=== PATIENT | female | born 1985 | race Caucasian/White ===

== ENCOUNTER 2016-10-04 11:26 | Inpatient (IN) | payer OTHER ==
[~2016-10-04] VITALS: Ht 172.7 cm; Wt 135.9 kg
[~2016-10-04 11:26] MED LIST: CPR500 PO
[2016-10-04] MEDS ORDERED: ONDANSETRON INJ 2 MG/ML 2 ML VIAL IV STA ×2 (11:48→12:55)
[2016-10-04] MEDS ORDERED: SODIUM CHLORIDE 0.9% 1000ML 1,000 ML IV STA (11:48)
[2016-10-04] MEDS ORDERED: MoRPHine SULFATE 10 MG/ML CARP/VIAL IV PRN (12:00)
[2016-10-04 12:16] LABS: BASO % 0.2 %; BASO ABS # 0.02 K/uL (0-0.2); COMPLETE YES; EOS % 0.6 %; HEMATOCRIT 38.5 % (37-47); IG% 0.3 %; LYMPH ABS # 1.73 K/uL (1.2-3.4); MEAN CELL VOLUME 92.5 fL (80-100); MEAN CORPUSCULAR HEMOGLOBIN 31.3 pg (25-34); MEAN CORPUSCULAR HGB CONC 33.8 g/dl (32-36); MEAN PLATELET VOLUME 11.3 fL (7.4-10.4); MONO % 7.8 %; NEUT % 76.1 %; PLATELET COUNT 186 K/uL (130-400); RED BLOOD COUNT 4.16 M/uL (4.2-5.4); WHITE BLOOD COUNT 11.52 K/uL (4.8-10.8)
[2016-10-04] MEDS ORDERED: OPTIRAY 320 IV PRN (12:30)
[2016-10-04 12:32] LABS: CALCIUM 8.9 mg/dl (8.5-10.1); CREATININE 1.6 mg/dl (0.60-1.20)
--- NOTE | 2016-10-04 13:43 | DIAGNOSTIC IMAGING REPORT ---
CT SCAN OF THE ABDOMEN AND PELVIS WITHOUT IV CONTRAST CLINICAL HISTORY: Right lower quadrant abdominal pain. COMPARISON STUDY: Abdominal CT dated 12/20/2009. TECHNIQUE: CT scan of the abdomen and pelvis is performed from the lung bases to the proximal femora. Images are reviewed in the axial, sagittal, and coronal planes. IV contrast was not administered for this examination as per the referring clinician. Oral contrast was utilized. The examination is degraded by large body habitus, and by streak artifact from the body wall abutting the CT gantry. Automated dose control exposure was utilized. A dose lowering technique was utilized adhering to the principles of ALARA. CT DOSE: 1694.36 mGy.cm FINDINGS: Lung bases: The heart is normal in size and without pericardial effusion. The lung bases are clear. Liver: The unenhanced liver is top normal in size and demonstrates diminished attenuation consistent with mild hepatic steatosis. Fatty sparing is seen adjacent to gallbladder fossa. There is no intrahepatic biliary ductal dilatation. Gallbladder: Unremarkable. Spleen: Normal in size and attenuation. Pancreas: Unremarkable. Adrenal glands: Unremarkable. Kidneys: The unenhanced kidneys are normal in size. There is a 7 mm obstructing calculus in the right proximal ureter seen on axial image #245 at the level of L3-L4. This causes mild right-sided hydroureteronephrosis. There is mild associated right-sided perinephric stranding. No additional calculi are identified in the right kidney. There are 2 nonobstructing left renal calculi which measure up to 4 mm. No left-sided hydronephrosis is seen. There is no evidence of contour deforming renal mass lesion. Abdominal vasculature: The abdominal aorta is normal in course and caliber. Bowel: The small bowel and colon are normal in course and caliber. The appendix is well-visualized and normal. Peritoneum: There is no intraperitoneal free air or abdominal ascites. There is a small fat-containing umbilical hernia. Lymphadenopathy: None. Pelvic viscera: The bladder is decompressed and grossly unremarkable. The uterus and adnexa are normal as visualized. Small ovarian follicles are observed. Skeletal structures: No lytic or blastic lesions are seen. IMPRESSION: There is a 7 mm obstructing calculus in the right proximal ureter. This causes mild right hydroureteronephrosis. 2. No additional right renal calculi are identified. Small nonobstructing stones are seen in the left kidney. 3. Mild hepatic steatosis. 4. Additional findings as above. Electronically signed by: Andi Ortega M.D. 10/04/2016 1:42 PM Dictated Date/Time: 10/04/2016 1:34 PM
[2016-10-04 14:39] LABS: URINE APPEARANCE CLOUDY (CLEAR); URINE BILIRUBIN NEG (NEG); URINE COLOR YELLOW; URINE EPITHELIAL CELL AUTO >30 /lpf (0-5); URINE NITRITE NEG (NEG); URINE SPECIFIC GRAVITY 1.021 (1.000-1.030); UROBILINOGEN NEG (NEG)
[2016-10-04 14:43] LABS: MANUAL MICROSCOPIC REQUIRED? NO; REVIEW REQ? NO
[2016-10-04] MEDS ORDERED: KETOROLAC TROMETHAMINE 30 MG/ML VIAL IV STA (15:07)
[2016-10-04] MEDS ORDERED: METOCLOPRAMIDE HCL INJ 5 MG/ML 2 ML VIAL IV STA (15:07)
[2016-10-04] MEDS ORDERED: ONDANSETRON INJ 2 MG/ML 2 ML VIAL IV PRN (15:15)
--- NOTE | 2016-10-04 15:18 | Progress Note ---
Internal Med Progress Note Date of Service: Oct 04, 2016. Vital Signs: Date Time Temp Pulse Resp B/P (MAP) Pulse Ox O2 Delivery O2 Flow Rate FiO2 10/04/16 15:29 63 20 124/84 98 Room Air 10/04/16 13:59 52 10/04/16 13:45 49 16 123/73 96 Room Air 10/04/16 11:28 36.4 65 20 120/89 97 Lab Results: Results Past 24 Hours Test 10/04/16 12:05 10/04/16 13:12 Range/Units White Blood Count 11.52 4.8-10.8 K/uL Red Blood Count 4.16 4.2-5.4 M/uL Hemoglobin 13.0 12.0-16.0 g/dL Hematocrit 38.5 37-47 % Mean Corpuscular Volume 92.5 80-100 fL Mean Corpuscular Hemoglobin 31.3 25-34 pg Mean Corpuscular Hemoglobin Concent 33.8 32-36 g/dl Platelet Count 186 130-400 K/uL Mean Platelet Volume 11.3 7.4-10.4 fL Neutrophils (%) (Auto) 76.1 % Lymphocytes (%) (Auto) 15.0 % Monocytes (%) (Auto) 7.8 % Eosinophils (%) (Auto) 0.6 % Basophils (%) (Auto) 0.2 % Neutrophils # (Auto) 8.76 1.4-6.5 K/uL Lymphocytes # (Auto) 1.73 1.2-3.4 K/uL Monocytes # (Auto) 0.90 0.11-0.59 K/uL Eosinophils # (Auto) 0.07 0-0.5 K/uL Basophils # (Auto) 0.02 0-0.2 K/uL RDW Standard Deviation 43.5 36.4-46.3 fL RDW Coefficient of Variation 12.9 11.5-14.5 % Immature Granulocyte % (Auto) 0.3 % Immature Granulocyte # (Auto) 0.04 0.00-0.02 K/uL Sodium Level 140 136-145 mmol/L Potassium Level 4.0 3.5-5.1 mmol/L Chloride Level 108 98-107 mmol/L Carbon Dioxide Level 26 21-32 mmol/L Anion Gap 6.0 3-11 mmol/L Blood Urea Nitrogen 11 7-18 mg/dl Creatinine 1.60 0.60-1.20 mg/dl Est Creatinine Clear Calc Drug Dose 7.4 ml/min Estimated GFR () 49.9 Estimated GFR (Non- 43.1 BUN/Creatinine Ratio 7.0 10-20 Random Glucose 84 70-99 mg/dl Calcium Level 8.9 8.5-10.1 mg/dl Total Bilirubin 0.4 0.2-1 mg/dl Direct Bilirubin 0.1 0-0.2 mg/dl Aspartate Amino Transf (AST/SGOT) 15 15-37 U/L Alanine Aminotransferase (ALT/SGPT) 23 12-78 U/L Alkaline Phosphatase 72 45-117 U/L Total Protein 7.0 6.4-8.2 gm/dl Albumin 3.6 3.4-5.0 gm/dl Lipase 190 73-393 U/L Urine Color YELLOW Urine Appearance CLOUDY CLEAR Urine pH 6.0 4.5-7.5 Urine Specific [place] 1.021 1.000-1.030 Urine Protein NEG NEG Urine Glucose (UA) NEG NEG Urine Ketones NEG NEG Urine Occult Blood 1+ NEG Urine Nitrite NEG NEG Urine Bilirubin NEG NEG Urine Urobilinogen NEG NEG Urine Leukocyte Esterase TRACE NEG Urine WBC (Auto) 5-10 0-5 /hpf Urine RBC (Auto) 5-10 0-4 /hpf Urine Hyaline Casts (Auto) 1-5 0-5 /lpf Urine Epithelial Cells (Auto) >30 0-5 /lpf Urine Bacteria (Auto) 1+ NEG Urine Test NEG NEG
[2016-10-04] MEDS ORDERED: MoRPHine SULFATE 2 MG/ML CARP IV PRN (15:45)
--- NOTE | 2016-10-04 15:45 | History and Physical ---
History & Physical Date & Time of Service: Oct 04, 2016 at 15:45 Chief Complaint: Stomach Pain, V, Constipation Primary Care Physician: No Doctor, Assigned History of Present Illness Source: patient, family Patient is a 31 yr female with PMH of Nephrolithiasis presents with history of RLQ abdominal pain since yesterday. States pain is about 5/10 intensity, which comes and goes, non radiating, pressure/cramping type of pain. No aggravating/ relieving factors. Denies any fever, chills, hematuria, chest pain, SOB, diarrhea. Reports associated nausea and vomiting. Reports having renal stones previously which is able to pass voluntarily. CT abd showed 7 mm obstructing calculus in the right proximal ureter. Past Medical/Surgical History Nephrolithiasis Family History Mother: HTN Grandfather:Nephrolithiasis Social History Smoking Status: Never Smoker Alcohol Use: socially Marital Status: single Allergies Coded Allergies: BEE STING (Unverified Allergy, Unknown, UNKNOWN, 10/04/16) Home Medications No Active Prescriptions or Reported Meds Review of Systems See HPI for pertinent positives & negatives. A total of 10 systems reviewed and were otherwise negative. Physical Exam Vital Signs Date Time Temp Pulse Resp B/P (MAP) Pulse Ox O2 Delivery O2 Flow Rate FiO2 10/04/16 15:29 63 20 124/84 98 Room Air 10/04/16 13:59 52 10/04/16 13:45 49 16 123/73 96 Room Air 10/04/16 11:28 36.4 65 20 120/89 97 General Appearance: WD/WN, no apparent distress, + obese Head: normocephalic, atraumatic Eyes: normal inspection, PERRL, EOMI ENT: normal ENT inspection, hearing grossly normal Neck: supple, trachea midline Respiratory/Chest: chest non-tender, lungs clear, normal breath sounds, no respiratory distress, no accessory muscle use Cardiovascular: regular rate, rhythm, no edema, no murmur Abdomen/GI: normal bowel sounds, soft, + pertinent finding (RLQ Tender) Back: normal inspection Extremities/Musculoskelatal: normal inspection, no pedal edema Neurologic/Psych: egg setter II-XII nml as tested, no motor/sensory deficits, alert, normal mood/affect, normal reflexes, oriented x 3 Skin: normal color, warm/dry Diagnostics Laboratory Results Results Past 24 Hours Test 10/04/16 12:05 10/04/16 13:12 Range/Units White Blood Count 11.52 4.8-10.8 K/uL Red Blood Count 4.16 4.2-5.4 M/uL Hemoglobin 13.0 12.0-16.0 g/dL Hematocrit 38.5 37-47 % Mean Corpuscular Volume 92.5 80-100 fL Mean Corpuscular Hemoglobin 31.3 25-34 pg Mean Corpuscular Hemoglobin Concent 33.8 32-36 g/dl Platelet Count 186 130-400 K/uL Mean Platelet Volume 11.3 7.4-10.4 fL Neutrophils (%) (Auto) 76.1 % Lymphocytes (%) (Auto) 15.0 % Monocytes (%) (Auto) 7.8 % Eosinophils (%) (Auto) 0.6 % Basophils (%) (Auto) 0.2 % Neutrophils # (Auto) 8.76 1.4-6.5 K/uL Lymphocytes # (Auto) 1.73 1.2-3.4 K/uL Monocytes # (Auto) 0.90 0.11-0.59 K/uL Eosinophils # (Auto) 0.07 0-0.5 K/uL Basophils # (Auto) 0.02 0-0.2 K/uL RDW Standard Deviation 43.5 36.4-46.3 fL RDW Coefficient of Variation 12.9 11.5-14.5 % Immature Granulocyte % (Auto) 0.3 % Immature Granulocyte # (Auto) 0.04 0.00-0.02 K/uL Sodium Level 140 136-145 mmol/L Potassium Level 4.0 3.5-5.1 mmol/L Chloride Level 108 98-107 mmol/L Carbon Dioxide Level 26 21-32 mmol/L Anion Gap 6.0 3-11 mmol/L Blood Urea Nitrogen 11 7-18 mg/dl Creatinine 1.60 0.60-1.20 mg/dl Est Creatinine Clear Calc Drug Dose 7.4 ml/min Estimated GFR () 49.9 Estimated GFR (Non- 43.1 BUN/Creatinine Ratio 7.0 10-20 Random Glucose 84 70-99 mg/dl Calcium Level 8.9 8.5-10.1 mg/dl Total Bilirubin 0.4 0.2-1 mg/dl Direct Bilirubin 0.1 0-0.2 mg/dl Aspartate Amino Transf (AST/SGOT) 15 15-37 U/L Alanine Aminotransferase (ALT/SGPT) 23 12-78 U/L Alkaline Phosphatase 72 45-117 U/L Total Protein 7.0 6.4-8.2 gm/dl Albumin 3.6 3.4-5.0 gm/dl Lipase 190 73-393 U/L Urine Color YELLOW Urine Appearance CLOUDY CLEAR Urine pH 6.0 4.5-7.5 Urine Specific [place] 1.021 1.000-1.030 Urine Protein NEG NEG Urine Glucose (UA) NEG NEG Urine Ketones NEG NEG Urine Occult Blood 1+ NEG Urine Nitrite NEG NEG Urine Bilirubin NEG NEG Urine Urobilinogen NEG NEG Urine Leukocyte Esterase TRACE NEG Urine WBC (Auto) 5-10 0-5 /hpf Urine RBC (Auto) 5-10 0-4 /hpf Urine Hyaline Casts (Auto) 1-5 0-5 /lpf Urine Epithelial Cells (Auto) >30 0-5 /lpf Urine Bacteria (Auto) 1+ NEG Urine Test NEG NEG Diagnostic Radiology CT ABD: There is a 7 mm obstructing calculus in the right proximal ureter. This causes mild right hydroureteronephrosis. 2. No additional right renal calculi are identified. Small nonobstructing stones are seen in the left kidney. 3. Mild hepatic steatosis. Impression Assessment and Plan Obstructive Uropathy and R hydroureteronephrosis Secondary to renal Calculus H/O nephrolithiasis Admit to medical floor IV fluids Pain control Strain Urine Empirically start Ceftriaxone Check Urine Culture Urology consulted NPO for now WILLY: Likely secondary to above IV Fluids Monitor renal function DVT Px: SCDs Ambulate Code Status: Full Code VTE Prophylaxis VTE Risk Assessment Done? Y/N: Yes Risk Level: Low
[2016-10-04] MEDS: SODIUM CHLORIDE 0.9% 1000ML 1,000 ML IV SCH (16:46)
[2016-10-04 16:50] VITALS: O2SAT 98; Ht 172.7 cm; Wt 135.9 kg
[2016-10-04] MEDS ORDERED: CEFTRIAXONE SOD INJ 1 GM in DEXTROSE 5% ADD-VANTAGE 50ML 50 ML IV SCH (17:00)
[2016-10-04] MEDS: ACETAMINOPHEN 325 MG TAB PO PRN (21:40)
--- NOTE | 2016-10-04 22:08 | EMERGENCY ROOM VISIT NOTE ---
ED Visit Note First contact with patient: 11:39 Chief Complaint: I'm having right lower quadrant abdominal pain. History of Present Illness: Ms. Alves is a 31 year-old white female who ambulates into the ED complaining of right lower quadrant abdominal pain. Historically patient reports no significant gastrointestinal diseases or abdominal surgeries. Patient reports a acute onset of right lower quadrant abdominal pain that started approximately 24 hours ago. Since that time the pain has been constant but has waxed and waned in intensity. The pain is currently described as cramping and pressure. The pain is nonradiating. She rates her discomfort between 4/10 and 10/10; currently it is 7/10. She has not identified any aggravating or alleviating factors related to the pain. She reports she took ibuprofen last night without relief of her discomfort. Associated with her pain she reports she has been nauseated and had 3 episode of vomiting and one episode of watery stools in the last 24 hours. Patient denies fevers, chills, sweats, skin eruptions, skin color changes, upper respiratory tract symptoms, shortness of breath, chest pain, constipation , rectal bleeding, black/tarry stools, urinary symptoms, hematuria, vaginal bleeding, vaginal discharge, back/flank pain. Review of Systems: As noted above in history of present illness. All body systems were reviewed and found to be negative as noted above. Past Medical History: Patient denies. Current Medications: Patient denies. Allergies to Medications: Patient denies. Social History: Patient is currently employed; she lives with a roommate and feels safe in her home environment; she denies tobacco use and admits to social alcohol use. Physical Examination: Vital Signs: Date Time Temp Pulse Resp B/P (MAP) Pulse Ox O2 Delivery O2 Flow Rate FiO2 10/04/16 15:29 63 20 124/84 98 Room Air 10/04/16 13:59 52 10/04/16 13:45 49 16 123/73 96 Room Air 10/04/16 11:28 36.4 65 20 120/89 97 GENERAL: 31-year-old female in mild to moderate distress due to pain, nontoxic- appearing, afebrile and hemodynamically stable. NEUROLOGICAL: Awake, alert and oriented to person, place and time. Answering questions appropriately and following commands. Normal gait. Good hand eye coordination. SKIN: Warm, dry and pink. No soft tissue eruptions or trauma noted. HEENT: Atraumatic and normocephalic. PERRLA. Sclera white and conjunctiva pink. Oral cavity moist and pink. Pharynx is nonerythematous or edematous. Speech normal. No lymphadenopathy. Trachea midline. No jugular venous distention. BACK: No tenderness over the bony spine. No CVA tenderness. THORAX: Lungs sounds are clear to auscultation and equal bilaterally with symmetrical chest wall. No wheezing, rales or rhonchi. No crepitus, tenderness , subcutaneous air or deformities noted. HEART: Regular rate and rhythm. No gallops, rubs or murmurs are appreciated. ABDOMEN: Obese and soft with moderate tenderness just superior to McBurney's point in the right lower quadrant and mild epigastric tenderness. Positive bowel sounds in all quadrants. No guarding, rigidity or organomegaly. EXTREMITIES: Moves all extremities well on command and with purpose. All distal neurovascular statuses are intact and equal bilaterally. ED Course: Patient is assessed as noted above. Patient's medication list was reviewed. Laboratory Testing: Test 10/04/16 12:05 10/04/16 13:12 Range/Units White Blood Count 11.52 4.8-10.8 K/uL Red Blood Count 4.16 4.2-5.4 M/uL Hemoglobin 13.0 12.0-16.0 g/dL Hematocrit 38.5 37-47 % Mean Corpuscular Volume 92.5 80-100 fL Mean Corpuscular Hemoglobin 31.3 25-34 pg Mean Corpuscular Hemoglobin Concent 33.8 32-36 g/dl Platelet Count 186 130-400 K/uL Mean Platelet Volume 11.3 7.4-10.4 fL Neutrophils (%) (Auto) 76.1 % Lymphocytes (%) (Auto) 15.0 % Monocytes (%) (Auto) 7.8 % Eosinophils (%) (Auto) 0.6 % Basophils (%) (Auto) 0.2 % Neutrophils # (Auto) 8.76 1.4-6.5 K/uL Lymphocytes # (Auto) 1.73 1.2-3.4 K/uL Monocytes # (Auto) 0.90 0.11-0.59 K/uL Eosinophils # (Auto) 0.07 0-0.5 K/uL Basophils # (Auto) 0.02 0-0.2 K/uL RDW Standard Deviation 43.5 36.4-46.3 fL RDW Coefficient of Variation 12.9 11.5-14.5 % Immature Granulocyte % (Auto) 0.3 % Immature Granulocyte # (Auto) 0.04 0.00-0.02 K/uL Sodium Level 140 136-145 mmol/L Potassium Level 4.0 3.5-5.1 mmol/L Chloride Level 108 98-107 mmol/L Carbon Dioxide Level 26 21-32 mmol/L Anion Gap 6.0 3-11 mmol/L Blood Urea Nitrogen 11 7-18 mg/dl Creatinine 1.60 0.60-1.20 mg/dl Est Creatinine Clear Calc Drug Dose 7.4 ml/min Estimated GFR () 49.9 Estimated GFR (Non- 43.1 BUN/Creatinine Ratio 7.0 10-20 Random Glucose 84 70-99 mg/dl Calcium Level 8.9 8.5-10.1 mg/dl Total Bilirubin 0.4 0.2-1 mg/dl Direct Bilirubin 0.1 0-0.2 mg/dl Aspartate Amino Transf (AST/SGOT) 15 15-37 U/L Alanine Aminotransferase (ALT/SGPT) 23 12-78 U/L Alkaline Phosphatase 72 45-117 U/L Total Protein 7.0 6.4-8.2 gm/dl Albumin 3.6 3.4-5.0 gm/dl Lipase 190 73-393 U/L Urine Color YELLOW Urine Appearance CLOUDY CLEAR Urine pH 6.0 4.5-7.5 Urine Specific [place] 1.021 1.000-1.030 Urine Protein NEG NEG Urine Glucose (UA) NEG NEG Urine Ketones NEG NEG Urine Occult Blood 1+ NEG Urine Nitrite NEG NEG Urine Bilirubin NEG NEG Urine Urobilinogen NEG NEG Urine Leukocyte Esterase TRACE NEG Urine WBC (Auto) 5-10 0-5 /hpf Urine RBC (Auto) 5-10 0-4 /hpf Urine Hyaline Casts (Auto) 1-5 0-5 /lpf Urine Epithelial Cells (Auto) >30 0-5 /lpf Urine Bacteria (Auto) 1+ NEG Urine Test NEG NEG Initially a oral and IV contrast CT was initiated but due to her elevated creatinine and her uncontrolled vomiting but was changed to a noncontrast CT. Noncontrast abdominal/pelvic CT: Was reviewed by saprkleelf and read by the radiologist showing a 7 mm obstructing your calculus in the right proximal ureter causing mild right sided hydroureteronephrosis and perinephric stranding. Additional non-obstructing calculus were noted. Appendix is well- visualized and is normal. Small fat-containing umbilical hernia. No abdominal free air or site he's pelvic visceral is unremarkable. Mild hepatic Steatosis. Patient was hydrated with normal saline and she received 6 mg of morphine IV for pain and 4 mg of Zofran IV for nausea. On reassessment she still reported that she was having moderate pain and did not want any additional narcotics but was also still nauseated and she received an additional 4 mg of Zofran. Patient's case was reviewed with ; we agreed on diagnostic approach , treatment, disposition and plan. Patient's case was reviewed with Dr. Obrien, urology; he recommended Toradol for pain. Patient was given 30 mg of Toradol IV for pain and 10 mg of Reglan IV for nausea /vomiting. Patient's case was consulted with case management and Dr. Rasheed, [facility], for medical observation/admission per Patient was educated about today's findings. Clinical Impression: Right proximal ureter calculus. Irretractable nausea/ vomiting. Irretractable pain. Decision-Making: Initially my differential diagnosis I considered acute appendicitis, bowel obstruction, kidney stone, pyelonephritis, pancreatitis, hepatitis, ectopic , ovarian torsion and other causes. Disposition and Plan: Patient be brought in the hospital by the [facility]; please see their notes and orders for final disposition and plan.
[2016-10-05] VITALS: BP 106/71; PULSE 57; TEMP 36.5; O2SAT 98
[2016-10-05] MEDS: SODIUM CHLORIDE 0.9% 1000ML 1,000 ML IV SCH ×3 (03:28→11:46)
[2016-10-05] MEDS: ACETAMINOPHEN 325 MG TAB PO PRN (06:25)
[2016-10-05 07:31] VITALS: BP 130/87; PULSE 58; TEMP 36.6; O2SAT 96
[2016-10-05 07:48] LABS: BASO % 0.2 %; BASO ABS # 0.02 K/uL (0-0.2); COMPLETE YES; EOS % 0.6 %; HEMATOCRIT 34.9 % (37-47); IG% 0.3 %; LYMPH % 15.4 %; LYMPH ABS # 1.68 K/uL (1.2-3.4); MEAN CELL VOLUME 93.3 fL (80-100); MEAN CORPUSCULAR HEMOGLOBIN 30.7 pg (25-34); MEAN PLATELET VOLUME 11.7 fL (7.4-10.4); MONO % 6.8 %; NEUT % 76.7 %; PLATELET COUNT 165 K/uL (130-400); RED BLOOD COUNT 3.74 M/uL (4.2-5.4); WHITE BLOOD COUNT 10.89 K/uL (4.8-10.8)
[2016-10-05 08:17] LABS: BUN/CREATININE RATIO 6.7 (10-20); CALCIUM 8.2 mg/dl (8.5-10.1); CREATININE 1.4 mg/dl (0.60-1.20); POTASSIUM 3.8 mmol/L (3.5-5.1)
[2016-10-05] MEDS ORDERED: TRAMADOL HCL 50 MG TAB PO PRN (08:45)
--- NOTE | 2016-10-05 09:52 | Urology Consultation ---
History General Date of Service: Oct 05, 2016. Chief Complaint: nephrolithiasis Primary Care Physician: No Doctor, Assigned Pt seen a urologist before?: No History of Present Illness 31 yo female presents to [facility] with c/o right flank pain x [address] scan showing a 7mm proximal right ureteral stone. She has a hx of passing 2 stones on her own ~7 years ago. She has never seen a urologist for this issue. She c/o right flank pain 7/10 this morning. Denies n/v, dysuria, or hematuria. Noted to be afebrile. White count of 10.89. Cr of 1.4 this morning. UC&S is pending. Imaging Imaging: CT Laboratory Last 24 Hours Test 10/04/16 12:05 10/04/16 13:12 10/05/16 06:56 White Blood Count 11.52 K/uL 10.89 K/uL Red Blood Count 4.16 M/uL 3.74 M/uL Hemoglobin 13.0 g/dL 11.5 g/dL Hematocrit 38.5 % 34.9 % Mean Corpuscular Volume 92.5 fL 93.3 fL Mean Corpuscular Hemoglobin 31.3 pg 30.7 pg Mean Corpuscular Hemoglobin Concent 33.8 g/dl 33.0 g/dl Platelet Count 186 K/uL 165 K/uL Mean Platelet Volume 11.3 fL 11.7 fL Neutrophils (%) (Auto) 76.1 % 76.7 % Lymphocytes (%) (Auto) 15.0 % 15.4 % Monocytes (%) (Auto) 7.8 % 6.8 % Eosinophils (%) (Auto) 0.6 % 0.6 % Basophils (%) (Auto) 0.2 % 0.2 % Neutrophils # (Auto) 8.76 K/uL 8.36 K/uL Lymphocytes # (Auto) 1.73 K/uL 1.68 K/uL Monocytes # (Auto) 0.90 K/uL 0.74 K/uL Eosinophils # (Auto) 0.07 K/uL 0.06 K/uL Basophils # (Auto) 0.02 K/uL 0.02 K/uL RDW Standard Deviation 43.5 fL 44.4 fL RDW Coefficient of Variation 12.9 % 13.0 % Immature Granulocyte % (Auto) 0.3 % 0.3 % Immature Granulocyte # (Auto) 0.04 K/uL 0.03 K/uL Sodium Level 140 mmol/L 139 mmol/L Potassium Level 4.0 mmol/L 3.8 mmol/L Chloride Level 108 mmol/L 107 mmol/L Carbon Dioxide Level 26 mmol/L 27 mmol/L Anion Gap 6.0 mmol/L 5.0 mmol/L Blood Urea Nitrogen 11 mg/dl 9 mg/dl Creatinine 1.60 mg/dl 1.40 mg/dl Est Creatinine Clear Calc Drug Dose 7.4 ml/min 86.8 ml/min Estimated GFR () 49.9 58.7 Estimated GFR (Non- 43.1 50.6 BUN/Creatinine Ratio 7.0 6.7 Random Glucose 84 mg/dl 81 mg/dl Calcium Level 8.9 mg/dl 8.2 mg/dl Total Bilirubin 0.4 mg/dl Direct Bilirubin 0.1 mg/dl Aspartate Amino Transf (AST/SGOT) 15 U/L Alanine Aminotransferase (ALT/SGPT) 23 U/L Alkaline Phosphatase 72 U/L Total Protein 7.0 gm/dl Albumin 3.6 gm/dl Lipase 190 U/L Urine Color YELLOW Urine Appearance CLOUDY Urine pH 6.0 Urine Specific [place] 1.021 Urine Protein NEG Urine Glucose (UA) NEG Urine Ketones NEG Urine Occult Blood 1+ Urine Nitrite NEG Urine Bilirubin NEG Urine Urobilinogen NEG Urine Leukocyte Esterase TRACE Urine WBC (Auto) 5-10 /hpf Urine RBC (Auto) 5-10 /hpf Urine Hyaline Casts (Auto) 1-5 /lpf Urine Epithelial Cells (Auto) >30 /lpf Urine Bacteria (Auto) 1+ Urine Test NEG Past History kidney stones Past Surgical History: other (wisdom tooth extraction ) Family History mother- HTN grandfather-nephrolithiasis Social History Hx Tobacco Use In Past Year?: No Smoking: non-smoker Alcohol: socially Marital status: single Allergies Coded Allergies: BEE STING (Unverified Allergy, Unknown, UNKNOWN, 10/04/16) Medications Home Medications: Home Meds and Scripts Medications Dose Route/Sig Max Daily Dose Days Date Category No Active Prescriptions or Reported Medications Rx Inpatient Medications: Current Inpatient Medications Medications (Trade) Dose Ordered Sig/Cruzito Route Start Time Stop Time Status Last Admin Dose Admin Acetaminophen (Tylenol Tab) 650 mg Q4H PRN PO 10/04/16 15:15 11/03/16 15:14 10/05/16 06:25 650 MG Ondansetron HCl (Zofran Inj) 4 mg Q6H PRN IV 10/04/16 15:15 11/03/16 15:14 Ceftriaxone Sodium 1 gm/ Dextrose 50 ml @ 100 mls/hr Q24H IV 10/04/16 17:00 10/06/16 16:59 10/04/16 17:19 100 MLS/HR Morphine Sulfate (MoRPHine SULFATE INJ) 1 mg Q4H PRN IV 10/04/16 15:45 10/18/16 15:44 Sodium Chloride 1,000 ml @ 150 mls/hr Q6H40M IV 10/04/16 16:30 11/03/16 16:29 10/05/16 06:29 150 MLS/HR Tramadol HCl (Ultram Tab) 50 mg Q4H PRN PO 10/05/16 08:45 11/04/16 08:44 UNV Review of Systems Review of Systems Constitutional: No fever, No chills Eyes: No double vision Neurological: No dizzy Endocrine: No excessive thirst Gastrointestinal: + abdominal pain (right flank 7/10), No nausea, No vomiting Cardiovascular: No chest pain Respiratory: No shortness of breath Skin: No rash Musculoskeletal: No back pain Female : No painful urination, No blood in urine Physical Exam Vital Signs: Vital Signs Past 12 Hours Date Time Temp Pulse Resp B/P (MAP) Pulse Ox O2 Delivery O2 Flow Rate FiO2 10/05/16 08:00 Room Air 10/05/16 07:31 36.6 58 18 130/87 (101) 96 10/05/16 00:00 Room Air 10/05/16 00:00 36.5 57 20 106/71 (83) 98 Room Air Physical Exam: General Appearance: no apparent distress, + obese Eyes: bilateral eyes normal inspection ENT: hearing grossly normal Neck: no JVD Respiratory/Chest: no respiratory distress, no accessory muscle use Cardiovascular: no JVD Extremities: normal inspection Neurologic/Psychiatric: alert, normal mood/affect, oriented x 3 Skin: normal color Assessment & Plan Assessment & Plan Treatment Planned: cystoscopy w/ stent A/P: 7mm proximal right ureteral stone AFVSS. Tx options discussed with the pt today have included a trial of passage with MET vs cysto with right ureteral stent placement. She prefers stent placement today with Dr. Messer. Risks and benefits of the procedure discussed with the pt. All questions answered. Pt agrees to the procedure at this time. Consent obtained. Will check a pre-op EKG, chest x-ray, and KUB. Will tentatively plan for right ESWL this Wednesday for definitive stone management. Avoids all NSAIDS or other anticoagulation until after ESWL. Hopeful for d/c home tomorrow. Thanks for the consult. Will continue to follow along with primary service.
--- NOTE | 2016-10-05 10:45 | DIAGNOSTIC IMAGING REPORT ---
CHEST 2 VIEWS ROUTINE CLINICAL HISTORY: Preoperative evaluation. COMPARISON STUDY: No previous studies for comparison. FINDINGS: Lung volumes are at the lower limits of normal. There is no consolidation. Pulmonary vascularity is normal. No pneumothorax or pleural effusion is present. Borderline cardiomegaly is noted. IMPRESSION: 1. No acute cardiopulmonary findings. 2. Borderline cardiomegaly. Electronically signed by: Irwin Khan M.D. 10/05/2016 10:44 AM Dictated Date/Time: 10/05/2016 10:43 AM
--- NOTE | 2016-10-05 10:51 | DIAGNOSTIC IMAGING REPORT ---
KUB CLINICAL HISTORY: 31 years-old Female presenting with RIGHT URETERAL STONE. TECHNIQUE: Single supine view of the abdomen was obtained. COMPARISON: CT from 10/04/2016. FINDINGS: The presence of oral contrast in the colon and bowel gas degrade evaluation of the kidneys. Within this limitation, the previously noted punctate calculi in the left kidney are not radiographically apparent. The obstructing proximal right renal calculus at the L3-4 level may project over the right sacrum, although this is indeterminate. No other candidate calculus noted in the more distal right ureter or over the region of the bladder. Osseous structures intact. Nonobstructive bowel gas pattern. IMPRESSION: 1. Possible migration of the right ureteral calculus, which may project over the right sacrum. However, this is indeterminate. Continued follow-up recommended. 2. Punctate left renal calculi not radiographically apparent. Electronically signed by: Jadiel Reyes M.D. 10/05/2016 10:50 AM Dictated Date/Time: 10/05/2016 10:47 AM
[2016-10-05] MEDS ORDERED: CIPROFLOXACIN 400MG / 200ML D5W IV SCH (12:00)
[2016-10-05] MEDS ORDERED: ATROPINE SULFATE 0.1 MG/ML 5ML SYR IV PRN (12:15)
[2016-10-05] MEDS ORDERED: ONDANSETRON INJ 2 MG/ML 2 ML VIAL IV PRN (12:15)
[2016-10-05] MEDS ORDERED: HYDROmorphone INJ 1 MG/ML SYR IV PRN (12:15)
[2016-10-05] MEDS ORDERED: FENTANYL CITRATE INJ 50 MCG/1 ML 2 ML VIAL IV PRN (12:15)
[2016-10-05] MEDS ORDERED: EpHEDrine SULFATE INJ 50 MG/ML AMP IV PRN (12:15)
[2016-10-05] MEDS ORDERED: MIDAZOLAM HCL 1 MG/ML 2ML VIAL ONE (12:41)
[2016-10-05] MEDS ORDERED: FENTANYL CITRATE INJ 50 MCG/1 ML 2 ML VIAL ONE (12:41)
[2016-10-05] MEDS ORDERED: CONRAY 30% 150ML BOTTLE ONE (12:41)
[2016-10-05] MEDS ORDERED: LIDOCAINE HCL 2% 2 ML VIAL (20MG/ML) ONE (12:41)
[2016-10-05] MEDS ORDERED: PROPOFOL IV EMULSION 10 MG/ML 20 ML VIAL IV ONE (12:41)
[2016-10-05] MEDS ORDERED: PHEN-775 PO (12:51)
[2016-10-05] MEDS ORDERED: CIPR-255 PO (12:51)
[2016-10-05] MEDS ORDERED: OXYC7.5T65 PO (12:51)
--- NOTE | 2016-10-05 12:54 | Discharge Instructions ---
Discharge Instructions Date of Service Oct 05, 2016. Admission Reason for Admission: Renal Colic Discharge Discharge Diagnosis / Problem: R upper ureteral stone s/p stent Discharge Goals Goal(s): Decrease discomfort, Improve function, Therapeutic intervention Activity Recommendations Activity Limitations: as noted below Lifting Limitations: no more than 25 pounds, gradually increase as tolerated Exercise/Sports Limitations: rest today, gradually increase as tolerated May Resume Sexual Activity: when tolerated Shower/Bathe: no limitations Driving or Machine Use: resume 1 day after discharge . Instructions / Follow-Up Instructions / Follow-Up Call office at [phone] to confirm appointment and schedule shockwave lithotripsy as planned or with any other urologic questions. Current Hospital Diet Hospital Diet(s): Clear Liquid Diet Discharge Diet Recommended Diet: Regular Diet (good fluid intake) Procedures Procedures Performed: Cystoscopy, right retrograde pyelography and right ureteral stent Pending Studies Studies pending at discharge: no Medical Emergencies . Who to Call and When: Medical Emergencies: If at any time you feel your situation is an emergency, please call 911 immediately. . Non-Emergent Contact Non-Emergency issues call your: Urologist Call Non-Emergent contact if: you have a fever, temperature is above 101, your pain is not controlled, your pain is worsening, your pain is unusual for you, your pain is concerning you, you have any medication questions . . "Provider Documentation" section prepared by Blas Messer. . VTE Core Measure Inpt VTE Proph given/why not?: SCD's [place] Drug Monitoring Program Search Results: patient reviewed within database, no issues identified
--- NOTE | 2016-10-05 13:20 | [facility] Post Operative Brief Note ---
Immediate Operative Summary Operative Date Oct 05, 2016. Pre-Operative Diagnosis Right ureteral stone with intractable colic Post-Operative Diagnosis Same Procedure(s) Performed Cystoscopy, right retrograde pyelography and right ureteral stent Surgeon Gui Malone Assistant Professor Of Forestry Surgeon(s) NA Estimated Blood Loss NA Findings Good stent position on fluoro Specimens NA Drains 5 fr multilength R ureteral stent Anesthesia MAC Complication(s) None Disposition Recovery Room / PACU
--- NOTE | 2016-10-05 13:23 | [facility] Operative Report ---
Operative Report Operative Date Oct 05, 2016. Pre-Operative Diagnosis Right ureteral stone with intractable colic Post-Operative Diagnosis Same Procedure(s) Performed Cystoscopy, right retrograde pyelography and right ureteral stent Surgeon Gui Malone Ethnic Origins Teacher Surgeon(s) NA Estimated Blood Loss NA Findings Good stent position on fluoro Specimens NA Drains 5 fr multilength R ureteral stent Anesthesia MAC Complication(s) None Disposition Recovery Room / PACU Indications 31 -year-old female admitted for intractable right renal colic due to a 7 mm right proximal ureteral stone. Please see urology consultation for further details. Patient is chosen the ureteral stent ensure season is being brought to the operating room for this purpose. Ciprofloxacin was provided for intravenous antibiotic coverage. Description of Procedure Patient was properly identified and brought into the operative suite after identification of appropriate consent of the chart. Monitored anesthesia care with sedation was initiated and patient was prepped and draped in the standard fashion for this procedure. Full timeout procedure was followed. 22 Azeri rigid cystoscope was passed into the bladder under direct visualization bladder was surveyed in its entirety demonstrating no intravesical lesions, papillary masses or calculi. Right-sided ureteral orifice was cannulated using an open- ended catheter and gentle retrograde pyelography was performed. This demonstrated a normal ureter up to the proximal ureter and then some dilation of the right renal pelvis. This was followed by a sensor wire which was advanced to the right kidney without difficulties. 5 Azeri multilength ureteral stent was advanced with focal present within the renal pelvis and a coil present within the bladder. Hydronephrotic drip was appreciated from the right-hand side with concentrated urine but no purulence. Bladder was drained and cystoscope was removed. Anesthesia was reversed patient's transient recovery room in stable condition. Patient should be stable for discharge home this afternoonand is provided with prescriptions for ciprofloxacin, Pyridium and Percocet. Will likely arrange for lithotripsy in the near future for definitive stone management. She may contact our office for further information. I attest to the content of the Intraoperative Record and any orders documented therein. Any exceptions are noted below.
[2016-10-05] MEDS ORDERED: PHENAZOPYRIDINE HCL 200 MG TAB PO PRN (13:30)
--- NOTE | 2016-10-05 13:31 | DIAGNOSTIC IMAGING REPORT ---
Radiology RETROGRADE INCLUDES KUB CLINICAL HISTORY: 31 years-old Female presenting with RT CYSTO/STENT. TECHNIQUE: 5 fluoroscopic spot image(s) obtained as part of an intraoperative procedure. COMPARISON: 10/05/2016. FINDINGS/IMPRESSION: Initial spot images demonstrate progressive opacification of the right ureter. No gross filling defect is evident. Subsequently, a guidewire was introduced into the upper pole calyx of the right kidney and a right ureteral stent was placed. Please see surgical report for further details. Fluoroscopy dosage (mGy): Not available. Fluoroscopy time: 50 seconds. Number of fluoroscopic spot images: 5. Electronically signed by: Jadiel Reyes M.D. 10/05/2016 1:30 PM Dictated Date/Time: 10/05/2016 1:28 PM
--- NOTE | 2016-10-05 13:45 | Anesthesiology Progress Note ---
Anesthesia Post Op Note Date & Time Oct 05, 2016 at 13:45 Vital Signs Pain Intensity: 0 Vital Signs Past 12 Hours Date Time Temp Pulse Resp B/P (MAP) Pulse Ox O2 Delivery O2 Flow Rate FiO2 10/05/16 13:38 36.9 51 20 122/75 (92) 96 Room Air 10 10/05/16 13:35 134/80 10/05/16 13:33 61 21 98 10/05/16 13:33 60 21 10/05/16 13:30 136/72 10/05/16 13:28 55 24 100 10/05/16 13:28 56 24 10/05/16 13:25 125/75 10/05/16 13:23 47 22 10/05/16 13:23 47 22 100 10/05/16 13:21 121/71 10/05/16 13:18 36.0 58 20 128/74 98 Mask 10 10/05/16 13:18 58 23 128/74 98 10/05/16 13:18 58 23 10/05/16 08:00 Room Air 10/05/16 07:31 36.6 58 18 130/87 (101) 96 Notes Mental Status: alert / awake / arousable, participated in evaluation Pt Amnestic to Procedure: Yes Nausea / Vomiting: adequately controlled Pain: adequately controlled Airway Patency, RR, SpO2: stable & adequate BP & HR: stable & adequate Hydration State: stable & adequate Anesthetic Complications: no major complications apparent
[2016-10-05 14:04] VITALS: BP 125/80; PULSE 53; TEMP 36.5; O2SAT 99
--- NOTE | 2016-10-05 15:13 | Progress Note ---
Internal Med Progress Note Date of Service: Oct 05, 2016. Provider Documentation: SUBJECTIVE: Seen and examined at bedside Had stent placement today Doing well post procedure Denies chest pain, SOB, Abd pain Has some dysuria OBJECTIVE: Vital Signs-as noted below Physical Exam: Vitals signs as noted above General Appearance:Obese, no distress Head: normocephalic, Atraumatic Eyes: normal inspection, EOMI, PERRL Neck: supple, Trachea midline Respiratory/Chest: Normal breath sounds, CTA Cardiovascular: S1, S2, No murmur Abdomen/GI:Soft, Non tender, Bowel sounds present Extremities/Musculoskelatal:normal inspection, no edema Neurologic/Psych:AAOX3, grossly no focal neurological deficits Skin: normal color, warm Lab data as noted below. ASSESSMENT & PLAN: Obstructive Uropathy and R hydroureteronephrosis Secondary to renal Calculus H/O nephrolithiasis S/P Cystoscopy, right retrograde pyelography and right ureteral stent POD #0 DC IV fluids Pain control continue Ceftriaxone Urine Culture pending Appreciate Urology help WILLY: Likely secondary to above IV Fluids Monitor renal function Cr levels better DVT Px: SCDs Ambulate Code Status: Full Cod Disposition: Plan to discharge home today Follow up with Primary Care on 10/07/16 at 12:45pm [facility] Office [address] [place] [address], [place] [address] Follow up with your Urologist as advised Complete the antibiotic course as prescribed Seek immediate medical attention if your symptoms reoccur or worsen Vital Signs: Date Time Temp Pulse Resp B/P (MAP) Pulse Ox O2 Delivery O2 Flow Rate FiO2 10/05/16 14:04 36.5 53 18 125/80 (95) 99 10/05/16 13:51 56 21 93 10/05/16 13:51 54 21 10/05/16 13:50 126/76 10/05/16 13:46 56 16 98 10/05/16 13:46 55 16 10/05/16 13:45 130/78 10/05/16 13:41 52 22 122/75 98 10/05/16 13:41 51 22 10/05/16 13:38 36.9 51 20 122/75 (92) 96 Room Air 10 10/05/16 13:36 61 16 10/05/16 13:36 63 16 99 10/05/16 13:35 134/80 10/05/16 13:33 61 21 98 10/05/16 13:33 60 21 10/05/16 13:30 136/72 10/05/16 13:28 55 24 100 10/05/16 13:28 56 24 10/05/16 13:25 125/75 10/05/16 13:23 47 22 10/05/16 13:23 47 22 100 10/05/16 13:21 121/71 10/05/16 13:18 36.0 58 20 128/74 98 Mask 10 10/05/16 13:18 58 23 128/74 98 10/05/16 13:18 58 23 10/05/16 08:00 Room Air 10/05/16 07:31 36.6 58 18 130/87 (101) 96 10/05/16 00:00 Room Air 10/05/16 00:00 36.5 57 20 106/71 (83) 98 Room Air 10/04/16 20:00 Room Air 10/04/16 16:50 98 Room Air 10/04/16 15:29 63 20 124/84 98 Room Air Lab Results: Results Past 24 Hours Test 10/05/16 06:56 Range/Units White Blood Count 10.89 4.8-10.8 K/uL Red Blood Count 3.74 4.2-5.4 M/uL Hemoglobin 11.5 12.0-16.0 g/dL Hematocrit 34.9 37-47 % Mean Corpuscular Volume 93.3 80-100 fL Mean Corpuscular Hemoglobin 30.7 25-34 pg Mean Corpuscular Hemoglobin Concent 33.0 32-36 g/dl Platelet Count 165 130-400 K/uL Mean Platelet Volume 11.7 7.4-10.4 fL Neutrophils (%) (Auto) 76.7 % Lymphocytes (%) (Auto) 15.4 % Monocytes (%) (Auto) 6.8 % Eosinophils (%) (Auto) 0.6 % Basophils (%) (Auto) 0.2 % Neutrophils # (Auto) 8.36 1.4-6.5 K/uL Lymphocytes # (Auto) 1.68 1.2-3.4 K/uL Monocytes # (Auto) 0.74 0.11-0.59 K/uL Eosinophils # (Auto) 0.06 0-0.5 K/uL Basophils # (Auto) 0.02 0-0.2 K/uL RDW Standard Deviation 44.4 36.4-46.3 fL RDW Coefficient of Variation 13.0 11.5-14.5 % Immature Granulocyte % (Auto) 0.3 % Immature Granulocyte # (Auto) 0.03 0.00-0.02 K/uL Sodium Level 139 136-145 mmol/L Potassium Level 3.8 3.5-5.1 mmol/L Chloride Level 107 98-107 mmol/L Carbon Dioxide Level 27 21-32 mmol/L Anion Gap 5.0 3-11 mmol/L Blood Urea Nitrogen 9 7-18 mg/dl Creatinine 1.40 0.60-1.20 mg/dl Est Creatinine Clear Calc Drug Dose 86.8 ml/min Estimated GFR () 58.7 Estimated GFR (Non- 50.6 BUN/Creatinine Ratio 6.7 -20 Random Glucose 81 70-99 mg/dl Calcium Level 8.2 8.5-10.1 mg/dl Microbiology Results 10/04/16 Urine Culture - Preliminary, Resulted PIN-POINT GROWTH PRESENT, REINCUBATING.
--- NOTE | 2016-10-05 15:17 | Discharge Summary ---
Discharge Summary Date of Service Oct 05, 2016. Discharge Summary Admission Date: Oct 04, 2016 at 15:35 Discharge Date: Oct 05, 2016 Discharge Disposition: Home Principal Diagnosis: Renal colic Procedures: Cystoscopy, right retrograde pyelography and right ureteral stent Consultations: Urology Pending Studies/Follow-Up: Follow up with Primary Care on 10/07/16 at 12:45pm [address], [place] [address] Follow up with your Urologist as advised Complete the antibiotic course as prescribed Seek immediate medical attention if your symptoms reoccur or worsen Medication Reconciliation New Medications: Ciprofloxacin Hcl (Cipro) 500 Mg Tab 500 MG PO BID, #6 TAB Oxycodone/Acetaminophen 7.5MG/325MG (Percocet 7.5MG/325MG) Tab 1 TAB PO Q4 PRN for Pain, #20 TAB Phenazopyridine Hcl (Pyridium) 200 Mg Tab 200 MG PO TID PRN for Bladder pain, #30 TAB Admission Information HPI (per Admitting provider): Patient is a 31 yr female with PMH of Nephrolithiasis presents with history of RLQ abdominal pain since yesterday. States pain is about 5/10 intensity, which comes and goes, non radiating, pressure/cramping type of pain. No aggravating/ relieving factors. Denies any fever, chills, hematuria, chest pain, SOB, diarrhea. Reports associated nausea and vomiting. Reports having renal stones previously which is able to pass voluntarily. CT abd showed 7 mm obstructing calculus in the right proximal ureter. Physical Exam (per Admitting): General Appearance: WD/WN, no apparent distress, + obese Head: normocephalic, atraumatic Eyes: normal inspection, PERRL, EOMI ENT: normal ENT inspection, hearing grossly normal Neck: supple, trachea midline Respiratory/Chest: chest non-tender, lungs clear, normal breath sounds, no respiratory distress, no accessory muscle use Cardiovascular: regular rate, rhythm, no edema, no murmur Abdomen/GI: normal bowel sounds, soft, + pertinent finding (RLQ Tender) Back: normal inspection Extremities/Musculoskelatal: normal inspection, no pedal edema Neurologic/Psych: pipelines superintendent II-XII nml as tested, no motor/sensory deficits, alert , normal mood/affect, normal reflexes, oriented x 3 Skin: normal color, warm/dry Hospital Course Obstructive Uropathy and R hydroureteronephrosis Secondary to renal Calculus H/O nephrolithiasis S/P Cystoscopy, right retrograde pyelography and right ureteral stent POD #0 DC IV fluids Pain control continue Ceftriaxone Urine Culture pending Appreciate Urology help WILLY: Likely secondary to above IV Fluids Monitor renal function Cr levels better DVT Px: SCDs Ambulate Code Status: Full Cod Disposition: Plan to discharge home today Follow up with Primary Care on 10/07/16 at 12:45pm [facility] Office [address], [place] [address] Follow up with your Urologist as advised Complete the antibiotic course as prescribed Seek immediate medical attention if your symptoms reoccur or worsen Total time spent on discharge = 32 minutes This includes examination of the patient, discharge planning, medication reconciliation, and communication with other providers. Discharge Instructions Discharge Instructions Date of Service Oct 05, 2016. Admission Reason for Admission: Renal Colic Discharge Discharge Diagnosis / Problem: Renal colic Discharge Goals Goal(s): Decrease discomfort, Improve function Activity Recommendations Activity Limitations: resume your previous activity Exercise/Sports Limitations: as tolerated . Instructions / Follow-Up Instructions / Follow-Up Follow up with Primary Care on 10/07/16 at 12:45pm [facility] Office [address], [place] [address] Follow up with your Urologist as advised Complete the antibiotic course as prescribed Seek immediate medical attention if your symptoms reoccur or worsen Current Hospital Diet Patient's current hospital diet: Clear Liquid Diet Discharge Diet Recommended Diet: Regular Diet Procedures Procedures Performed: Retrograde, Cystoscopy, Right Stent Insertion Pending Studies Studies pending at discharge: yes (Urine Culture) List of pending studies: Urine culture Medical Emergencies . Who to Call and When: Medical Emergencies: If at any time you feel your situation is an emergency, please call 911 immediately. . Non-Emergent Contact Non-Emergency issues call your: Primary Care Provider, Urologist Call Non-Emergent contact if: you have a fever, your pain is not controlled, your pain is worsening, your pain is unusual for you, you have any medication questions Seek immediate medical attention if your symptoms reoccur or worsen . . "Provider Documentation" section prepared by Ramy Layne. . VTE Core Measure Inpt VTE Proph given/why not?: SCD's
[2016-10-05 15:18] VITALS: BP 118/79; PULSE 53; TEMP 36.3; O2SAT 96
[2016-10-05 15:26] VITALS: BP 118/79; PULSE 53; TEMP 36.3; O2SAT 96
[2016-10-05 15:46] VITALS: O2SAT 96
[2016-10-22] MEDS ORDERED: OXYC7.5T65 PO (10:32)
[2016-11-02] MEDS ORDERED: CIPR-255 PO (10:35)
[2016-11-02] MEDS ORDERED: PHEN-775 PO (10:35)
[2016-11-02] MEDS ORDERED: OXYC7.5T65 PO (10:35)
== END 2016-10-05 15:30 | disposition home or self-care (01) | DRG 694 ==
LOC: C.EDB 11:27 → C.MS2W 15:35 → ENRESERV 15:46
PROVIDERS: ADMIT Internal Medicine; ATTEND Internal Medicine
PROC: 0T768DZ Dilation of Right Ureter with Intraluminal Device, Via Natural or Artificial Opening Endoscopic (ICD-10-PCS; principal; 2016-10-05 14:15)
DX: N13.2 Hydronephrosis with renal and ureteral calculous obstruction (principal); N17.9 Acute kidney failure, unspecified

== ENCOUNTER → 2016-10-08 | Outpatient (CLI) | payer OTHER ==
[~2016-10-08] MED LIST changes: +CIPR-255 PO; -CPR500 PO; +OXYC7.5T65 PO; +PHEN-775 PO
--- NOTE | 2016-10-08 17:20 | DIAGNOSTIC IMAGING REPORT ---
KUB CLINICAL HISTORY: 31 years-old Female presenting with NEPHROLITHIASIS. TECHNIQUE: Single supine view of the abdomen was obtained. COMPARISON: 10/05/2016. FINDINGS: Interval placement of a right ureteral stent. The previously suspected calcification along the course of the right ureter projecting over the right sacral a left is no longer present, suggesting passage. No calcification projects over the visualized portion of the kidneys, along the ureters, or the bladder. Nonobstructive bowel gas pattern. Osseous structures normal. IMPRESSION: 1. Interval placement of right ureteral stent with passage of the right ureteral calculus. Electronically signed by: Jadiel Reyes M.D. 10/08/2016 5:19 PM Dictated Date/Time: 10/08/2016 5:17 PM
== END | disposition home or self-care (01) ==
LOC: C.RAD 16:44
PROVIDERS: ATTEND Urology
DX: N20.0 Calculus of kidney (principal)

== ENCOUNTER → 2016-10-09 | Day surgery (SDC) | payer OTHER ==
[2016-10-08 14:59] VITALS: Ht 172.7 cm; Wt 133.2 kg
[~2016-10-09] VITALS: Ht 172.7 cm; Wt 133.2 kg
[~2016-10-09] MED LIST changes: +ATROPINE SULFATE 0.1 MG/ML 5ML SYR IV PRN; +CIPROFLOXACIN 400MG / D5W IV SCH; +DEXAMETHASONE SOD INJ 4 MG/ML VIAL ONE; +EpHEDrine SULFATE INJ 50 MG/ML AMP IV PRN; +FENTANYL CITRATE INJ 50 MCG/1 ML 2 ML VIAL IV PRN; +FENTANYL CITRATE INJ 50 MCG/1 ML 2 ML VIAL ONE; +FLUMAZENIL 0.1 MG/1 ML 10 ML VIAL IV PRN; +HYDROmorphone INJ 2 MG/ML SYR/VIAL IV PRN; +LABETALOL HCL IV 5 MG/ML 20ML IV PRN; +LACTATED RINGER'S 1000ML 1,000 ML IV SCH; +LIDOCAINE HCL 2% 2 ML VIAL (20MG/ML) ONE; +MEPERIDINE HCL 25 MG/ML CARP IV PRN; +MIDAZOLAM HCL 1 MG/ML 2ML VIAL ONE; +NALOXONE HCL 0.4 MG/1 ML VIAL/CARP IV PRN; +ONDANSETRON INJ 2 MG/ML 2 ML VIAL IV PRN; +ONDANSETRON INJ 2 MG/ML 2 ML VIAL ONE; +PHENYLEPHRINE 100MCG/ML 5ML SYR IV PRN; +PROPOFOL IV EMULSION 10 MG/ML 20 ML VIAL IV ONE
--- NOTE | 2016-10-09 07:51 | History & Physical Bridge - SC ---
H&P Re-Evaluation Bridge Note: I have examined the patient, reviewed the History & Physical and in the interval since the performance of the History & Physical I have noted the following changes of clinical significance: No changes noted
--- NOTE | 2016-10-09 08:33 | [facility] Post Operative Brief Note ---
Immediate Operative Summary Operative Date Oct 09, 2016. Pre-Operative Diagnosis Right Ureteral Stone Post-Operative Diagnosis Same Procedure(s) Performed Right Extracorporeal Shock Wave Lithotripsy Surgeon Dr Villela Radio Communications Mechanician Surgeon(s) None Estimated Blood Loss 0ml Findings r ureteral stone Specimens None
--- NOTE | 2016-10-09 08:35 | Discharge Instructions-SurgCtr ---
Discharge Instructions Date of Service Oct 09, 2016. Visit Reason for Visit: Stones Discharge Discharge Diagnosis / Problem: r ureteral stone Discharge Goals Goal(s): Decrease discomfort, Improve disease control Activity Recommendations Activity Limitations: per Instructions/Follow-up section (no driving on narcotics) Anesthesia . Post Anesthesia Instructions: If you have had General Anesthesia or IV Sedation: * Do not drive today. * Resume driving when surgeon permits. * Do not make important decisions or sign legal documents today. * Call surgeon for: 1. Temperature elevations greater than 101 degrees F. 2. Uncontrollable pain. 3. Excessive bleeding. 4. Persistent nausea and vomiting. 5. Medication intolerance (nausea, vomiting or rash). * For nausea and vomiting use only clear liquids such as: tea, soda, bouillon until nausea subsides, then gradually increase diet as tolerated. * If you have any concerns or questions, call your surgeon's office. If physician is unavailable and it is an emergency, call 911 or go to the nearest emergency room. . Diet Recommendations Home Diet: resume previous diet Procedures Procedures Performed: Right Extracorporeal Shock Wave Lithotripsy Pending Studies Studies pending at discharge: no Medical Emergencies . Who to Call and When: Medical Emergencies: If at any time you feel your situation is an emergency, please call 911 immediately. . Non-Emergent Contact Non-Emergency issues call your: Urologist Call Non-Emergent contact if: temperature is above 100.5, your pain is worsening . . "Provider Documentation" section prepared by Sebastián Villela. .
--- NOTE | 2016-10-09 09:10 | Anesthesia Progress Nt - [facility] ---
Anesthesia Post Op Note Date & Time Oct 09, 2016 at 09:10 Vital Signs Pain Intensity: 0 Vital Signs Past 12 Hours Date Time Temp Pulse Resp B/P (MAP) Pulse Ox O2 Delivery O2 Flow Rate FiO2 10/09/16 09:00 122/72 10/09/16 08:58 66 13 99 10/09/16 08:58 64 13 10/09/16 08:56 36.2 60 22 126/82 99 Mask 6 10/09/16 08:55 124/75 10/09/16 08:54 126/82 10/09/16 08:53 72 12 10/09/16 08:53 71 12 98 10/09/16 06:29 36.7 70 16 112/77 (89) 99 Room Air Notes Mental Status: alert / awake / arousable, participated in evaluation Pt Amnestic to Procedure: Yes Nausea / Vomiting: adequately controlled Pain: adequately controlled Airway Patency, RR, SpO2: stable & adequate BP & HR: stable & adequate Hydration State: stable & adequate Anesthetic Complications: no major complications apparent
[2016-10-09 09:22] VITALS: TEMP 36.9
[2016-10-09 09:47] VITALS: BP 136/82; PULSE 50; O2SAT 98
--- NOTE | 2016-10-09 12:20 | OPERATIVE REPORT ---
DATE OF OPERATION: 10/09/2016 PREOPERATIVE DIAGNOSIS: Right ureteral stone. POSTOPERATIVE DIAGNOSIS: Same. PROCEDURE PERFORMED: Right ureteral ESWL. SURGEON: Dr. Villela. ANESTHESIA: General. INDICATIONS: The patient is a 31-year-old female who presented with acute colic and had a stent placed and presents now for definitive ESWL. PROCEDURE: The patient had preoperatively Venodyne stockings placed and antibiotics given. She was taken to the operating room, given general anesthesia in the supine position. The stone was visualized in 2 views going from over the top and she received 3000 shocks, the majority at level 5, the last 500 at level 6. At the end of the procedure, the patient was transferred to the recovery room in stable condition. I attest to the content of the Intraoperative Record and any orders documented therein. Any exception s are noted below.
== END | disposition home or self-care (01) ==
LOC: X.SURG 06:02
PROVIDERS: ATTEND Urology
DX: N20.1 Calculus of ureter (principal); F32.9 Major depressive disorder, single episode, unspecified; G47.9 Sleep disorder, unspecified

== ENCOUNTER → 2016-10-20 | Outpatient (CLI) | payer OTHER ==
[~2016-10-20] MED LIST changes: -ATROPINE SULFATE 0.1 MG/ML 5ML SYR IV PRN; -CIPROFLOXACIN 400MG / D5W IV SCH; -DEXAMETHASONE SOD INJ 4 MG/ML VIAL ONE; -EpHEDrine SULFATE INJ 50 MG/ML AMP IV PRN; -FENTANYL CITRATE INJ 50 MCG/1 ML 2 ML VIAL IV PRN; -FENTANYL CITRATE INJ 50 MCG/1 ML 2 ML VIAL ONE; -FLUMAZENIL 0.1 MG/1 ML 10 ML VIAL IV PRN; -HYDROmorphone INJ 2 MG/ML SYR/VIAL IV PRN; -LABETALOL HCL IV 5 MG/ML 20ML IV PRN; -LACTATED RINGER'S 1000ML 1,000 ML IV SCH; -LIDOCAINE HCL 2% 2 ML VIAL (20MG/ML) ONE; -MEPERIDINE HCL 25 MG/ML CARP IV PRN; -MIDAZOLAM HCL 1 MG/ML 2ML VIAL ONE; -NALOXONE HCL 0.4 MG/1 ML VIAL/CARP IV PRN; -ONDANSETRON INJ 2 MG/ML 2 ML VIAL IV PRN; -ONDANSETRON INJ 2 MG/ML 2 ML VIAL ONE; -PHENYLEPHRINE 100MCG/ML 5ML SYR IV PRN; -PROPOFOL IV EMULSION 10 MG/ML 20 ML VIAL IV ONE
--- NOTE | 2016-10-20 11:01 | DIAGNOSTIC IMAGING REPORT ---
KUB CLINICAL HISTORY: Nephrolithiasis. FINDINGS: 2 AP supine abdominal radiographs are compared to study dated 10/08/2016 and correlated with abdominal CT dated 10/04/2016. A right ureteral stent is unchanged in position. Again seen is a 6 mm calculus along the course of the stent projecting over the right transverse process of L5. No additional calcifications are seen projecting over either kidney. There is a nonobstructed abdominal bowel gas pattern. The bony structures appear intact. IMPRESSION: 1. A right ureteral stent and a mid right ureteral calculus are unchanged in position. 2. No additional renal calculi are identified. Electronically signed by: Andi Ortega M.D. 10/20/2016 11:00 AM Dictated Date/Time: 10/20/2016 10:57 AM
== END | disposition home or self-care (01) ==
LOC: C.RAD 10:19
PROVIDERS: ATTEND Urology
DX: N20.1 Calculus of ureter (principal)

== ENCOUNTER 2016-11-02 08:15 | Day surgery (SDC) | payer OTHER ==
[2016-10-22 10:41] VITALS: BMI 44.0
[~2016-11-02] VITALS: Ht 172.7 cm; Wt 133.1 kg
[~2016-11-02 08:15] MED LIST changes: +ATROPINE SULFATE 0.1 MG/ML 5ML SYR IV PRN; -CIPR-255 PO; +CIPROFLOXACIN / D5W 400 MG IV SCH; +EpHEDrine SULFATE INJ 50 MG/ML AMP IV PRN; +FENTANYL CITRATE INJ 50 MCG/1 ML 2 ML VIAL IV PRN; +LACTATED RINGER'S 1000ML 1,000 ML IV SCH; +ONDANSETRON INJ 2 MG/ML 2 ML VIAL IV PRN; -PHEN-775 PO
[2016-11-02 08:32] VITALS: BP 137/83; PULSE 66; TEMP 36.8; O2SAT 97; Ht 172.7 cm; Wt 133.1 kg
[2016-11-02] MEDS ORDERED: OXYC7.5T65 PO (10:35)
[2016-11-02] MEDS ORDERED: CIPR-255 PO (10:35)
[2016-11-02] MEDS ORDERED: PHEN-775 PO (10:35)
--- NOTE | 2016-11-02 10:37 | Discharge Instructions ---
Discharge Instructions Date of Service Nov 02, 2016. Admission Reason for Admission: Stones Discharge Discharge Diagnosis / Problem: stones Discharge Goals Goal(s): Decrease discomfort, Improve function, Increase independence, Improve disease control, Screening Activity Recommendations Activity Limitations: resume your previous activity Lifting Limitations: none Exercise/Sports Limitations: none May Resume Sexual Activity: when tolerated Shower/Bathe: no limitations Driving or Machine Use: resume 1 day after discharge . Instructions / Follow-Up Instructions / Follow-Up Please keep your previously scheduled follow up appointment with Dr. Obrien Discharge Diet Recommended Diet: Regular Diet Pending Studies Studies pending at discharge: no Medical Emergencies . Who to Call and When: Medical Emergencies: If at any time you feel your situation is an emergency, please call 911 immediately. . Non-Emergent Contact Non-Emergency issues call your: Urologist Call Non-Emergent contact if: you have a fever, temperature is above 101.5, your pain is not controlled, your pain is worsening . . "Provider Documentation" section prepared by Mac De Leon. . VTE Core Measure Inpt VTE Proph given/why not?: Treatment not indicated [place] Drug Monitoring Program Search Results: patient reviewed within database, no issues identified
[2016-11-02] MEDS ORDERED: PROPOFOL IV EMULSION 10 MG/ML 20 ML VIAL IV ONE (10:50)
[2016-11-02] MEDS ORDERED: DEXAMETHASONE SOD INJ 4 MG/ML VIAL ONE (10:50)
[2016-11-02] MEDS ORDERED: LIDOCAINE HCL 2% 2 ML VIAL (20MG/ML) ONE (10:50)
[2016-11-02] MEDS ORDERED: ONDANSETRON INJ 2 MG/ML 2 ML VIAL ONE (10:50)
[2016-11-02] MEDS ORDERED: FENTANYL CITRATE INJ 50 MCG/1 ML 2 ML VIAL ONE ×2 (10:51→11:39)
[2016-11-02] MEDS ORDERED: MIDAZOLAM HCL 1 MG/ML 2ML VIAL ONE (10:51)
[2016-11-02] MEDS ORDERED: CONRAY 30% 150ML BOTTLE ONE (11:09)
[2016-11-02] MEDS ORDERED: SODIUM CHLORIDE 0.9% 1000ML 1,000 ML IV SCH (12:06)
--- NOTE | 2016-11-02 12:13 | [facility] Operative Report ---
Operative Report Operative Date Nov 02, 2016. Pre-Operative Diagnosis Right ureteral stone Post-Operative Diagnosis Right Ureteral Stone Procedure(s) Performed Cystoscopy, Right Ureteroscopy, Stent Removal, Laser Lithotripsy, Stent Placement Surgeon Dr. Obrien Bd [employer] Surgeon(s) none Estimated Blood Loss 0 cc Findings Mid ureteral stone; several zita's plaques Specimens none per surgeon Drains [id number] - with string attached Anesthesia Gen Complication(s) None Disposition Recovery Room / PACU (stable) Indications R ureteral stone Description of Procedure Patient identified in preoperative holding area, consent reviewed and completed , and the patient was transferred to the operating suite. Upon arrival she received appropriate preoperative antibiotics in the form of ciprofloxacin. Adequate general anesthesia was achieved, and she was placed in dorsal lithotomy position and sterilely prepped and draped in standard fashion. I began the case by passing a 22 Kazakh cystoscope with 30 lens. A flexible grasper was used to grasp the distal end of the stent that was easily identified protruding from the right ureteral orifice. I then intubated the stent with a sensor wire which advanced the kidney under fluoroscopic guidance. The stent was removed and a 10 Kazakh double-lumen catheter passed over the wire to allow passage of a second wire into the kidney. Of note, the stone was not readily visible on fluoroscopic evaluation, despite the fact that it was previously easily seen on KUB. I subsequently passed a flexible ureteroscope over one of the wires all reserving the other safety wire. I begin by fully evaluating the kidney. There were several small Zita's plaques, but no stones. I passed a 400 laser fiber and I freed the Zita's plaques. I then performed a slow exit ureteroscopy and in the mid ureter I encountered a single round appearing yellow/brown calculus. Utilizing the same 400 laser fiber, I fragmented the stone into pieces all teams safe for spontaneous passage. I performed a repeat renoscopy before careful exit ureteroscopy which revealed no large retained fragments. Before concluding the case, I opacified the collecting system with a retrograde pyelogram which revealed no extravasation. A new 5 Kazakh by 22-32 centimeter double-J ureteral stent was inserted with a string left attached to it. There was an excellent curl in the kidney as well as the bladder. Bladder was decompressed, and the case concluded. The patient was transported to the recovery room in stable condition. I attest to the content of the Intraoperative Record and any orders documented therein. Any exceptions are noted below.
--- NOTE | 2016-11-02 12:14 | DIAGNOSTIC IMAGING REPORT ---
FLUOROSCOPIC IMAGES FROM RIGHT RETROGRADE EXAM CLINICAL HISTORY: Cystoscopy with lithotripsy and stent insertion COMPARISON STUDY: CT of the abdomen and pelvis October 04, 2016 and KUB October 20, 2016. Fluoroscopy time: 18.2 seconds. FINDINGS: 4 fluoroscopic images were submitted for interpretation. Initial image demonstrates the right ureteral calculus shown on exam of October 20, 2016. A right ureteral stent is in place. Subsequent images do not reveal this calculus within the proximal to mid right ureter. The distal right ureter was depicted on these images. IMPRESSION: Fluoroscopic images from right retrograde exam with stent insertion. Electronically signed by: Irwin Khan M.D. 11/02/2016 12:13 PM Dictated Date/Time: 11/02/2016 12:10 PM
[2016-11-02] MEDS ORDERED: OXYCODONE/ACETAMINOPHEN 5-325 TAB PO PRN ×2 (12:15)
[2016-11-02] MEDS ORDERED: ACETAMINOPHEN 325 MG TAB PO PRN (12:15)
[2016-11-02] MEDS ORDERED: KETOROLAC TROMETHAMINE 30 MG/ML VIAL IV. SCH (12:30)
--- NOTE | 2016-11-02 13:13 | Anesthesiology Progress Note ---
Anesthesia Post Op Note Date & Time Nov 02, 2016 at 13:13 Vital Signs Pain Intensity: 0 Vital Signs Past 12 Hours Date Time Temp Pulse Resp B/P (MAP) Pulse Ox O2 Delivery O2 Flow Rate FiO2 11/02/16 13:03 64 23 100 11/02/16 13:03 36.5 65 23 11/02/16 13:01 129/98 11/02/16 12:58 67 18 11/02/16 12:58 67 18 100 11/02/16 12:56 125/90 11/02/16 12:53 67 15 11/02/16 12:53 64 15 100 11/02/16 12:51 122/90 11/02/16 12:48 72 19 99 11/02/16 12:48 71 19 11/02/16 12:46 126/93 11/02/16 12:43 72 20 99 11/02/16 12:43 72 20 11/02/16 12:41 124/97 11/02/16 12:38 73 20 11/02/16 12:38 73 20 98 11/02/16 12:37 125/100 11/02/16 12:33 82 16 11/02/16 12:33 82 16 98 11/02/16 12:31 141/90 11/02/16 12:28 97 16 99 11/02/16 12:28 97 16 11/02/16 12:26 145/91 11/02/16 12:23 74 14 11/02/16 12:23 74 14 97 11/02/16 12:21 122/85 11/02/16 12:18 76 19 97 11/02/16 12:18 77 19 11/02/16 12:16 143/89 11/02/16 12:14 139/82 11/02/16 12:13 36.5 76 16 139/82 98 Nasal Cannula 2 11/02/16 08:32 36.8 66 18 137/83 (101) 97 Room Air Notes Mental Status: alert / awake / arousable, participated in evaluation Pt Amnestic to Procedure: Yes Nausea / Vomiting: adequately controlled Pain: adequately controlled Airway Patency, RR, SpO2: stable & adequate BP & HR: stable & adequate Hydration State: stable & adequate Anesthetic Complications: no major complications apparent
[2016-11-02 13:30] VITALS: BP 117/68; PULSE 74; TEMP 36.8; O2SAT 96
[2016-11-02 14:00] VITALS: BP 124/78; PULSE 68; TEMP 36.9; O2SAT 98
[2016-11-02 14:25] VITALS: BP 137/92; PULSE 58; TEMP 36.9; O2SAT 97
== END 2016-11-02 14:30 | disposition home or self-care (01) ==
LOC: C.ACU 08:15
PROVIDERS: ATTEND Urology
DX: N20.1 Calculus of ureter (principal); F32.9 Major depressive disorder, single episode, unspecified; Z80.8 Family history of malignant neoplasm of other organs or systems; Z83.3 Family history of diabetes mellitus; Z79.899 Other long term (current) drug therapy